=== PATIENT | male | born 1985 | race Caucasian/White ===

== ENCOUNTER 2018-01-08 11:42 | Emergency (ER) | payer MEDICAID, OTHER ==
[~2018-01-08] VITALS: Ht 185.4 cm; Wt 86.4 kg
[2018-01-08 11:53] VITALS: BP 121/54
[2018-01-08 12:17] LABS: CLARITY,URINE CLEAR (Clear); COLOR,URINE YELLOW (Yellow); GLUCOSE, URINE NEGATIVE (Neg); KETONES,URINE >=80 mg/dl (Neg); LEUKOCYTE ESTERASE ,URINE NEGATIVE (Neg); NITRITES, URINE NEGATIVE (Neg); OCCULT BLOOD,URINE SMALL (Neg); PROTEIN,URINE NEGATIVE (Neg)
[2018-01-08 12:23] LABS: UA COLLECTION TYPE VOIDED
[2018-01-08] MEDS ORDERED: CEPH-572 PO (12:24)
[2018-01-08] MEDS ORDERED: SULF1TAB49 PO (12:24)
[2018-01-08 12:25] LABS: BACTERIA,URINE FEW /HPF (Neg); MUCUS STRANDS MANY /LPF (Neg); SQUAMOUS EPITHELIAL CELL,UR FEW /LPF (FEW); WBC,URINE 0-4 /HPF (0-4)
== END 2018-01-08 12:45 | disposition home or self-care (01) ==
LOC: ER 11:43
DX: L03.313 Cellulitis of chest wall (principal); L03.311 Cellulitis of abdominal wall
CPT/HCPCS: 81001; 87070; 87077; 87186; 99284

== ENCOUNTER 2020-10-14 21:04 | Emergency (ER) | payer MEDICAID, OTHER ==
[~2020-10-14] VITALS: Ht 182.9 cm; Wt 62.6 kg
[2020-10-14 21:11] VITALS: BP 109/68
== END 2020-10-15 00:02 | disposition left against medical advice (07) ==
LOC: ER 21:05
DX: S09.90XA Unspecified injury of head, initial encounter (principal); Z53.21 Procedure and treatment not carried out due to patient leaving prior to being seen by health care provider; X58.XXXA Exposure to other specified factors, initial encounter; Y93.89 Activity, other specified; Y92.89 Other specified places as the place of occurrence of the external cause; Y99.8 Other external cause status

== ENCOUNTER 2020-10-18 04:05 | Emergency (ER) | payer MEDICAID ==
[~2020-10-18] VITALS: Ht 182.9 cm; Wt 84.1 kg
[2020-10-18 04:18] VITALS: BP 110/68
== END 2020-10-18 06:03 | disposition home or self-care (01) ==
LOC: ER 04:05
DX: S01.01XA Laceration without foreign body of scalp, initial encounter (principal); W22.8XXA Striking against or struck by other objects, initial encounter; Y93.89 Activity, other specified; Y92.89 Other specified places as the place of occurrence of the external cause; Y99.8 Other external cause status
CPT/HCPCS: 99281